=== PATIENT | female | born 1975 | race African-American/Black ===

== ENCOUNTER 2017-10-26 14:15 | Emergency (ER) | payer OTHER ==
[~2017-10-26] VITALS: Ht 180.3 cm; Wt 127.0 kg
[2017-10-26 14:21] VITALS: BP 130/91; PULSE 95; RESP 18; TEMP 98.1; O2SAT 98
[2017-10-26] MEDS ORDERED: SODIUM CHLOR 0.9% 1000 ML INJ 1,000 ML IV ONE (17:13)
[2017-10-26] MEDS ORDERED: diphenhydrAMINE HCL 50 MG/ML VIAL IVP ONE (17:15)
[2017-10-26] MEDS ORDERED: METOCLOPRAMIDE HCL 10 MG/2 ML VIAL IVP ONE (17:15)
[2017-10-26] MEDS ORDERED: ACETAMINOPHEN 325 MG TAB PO ONE (17:15)
[2017-10-26] MEDS ORDERED: SODIUM CHLORIDE 0.9% FLUSH 10 ML FLUSH IVF PRN (17:15)
--- NOTE | 2017-10-26 17:20 | PD ---
HPI Chief Complaint: Headache Time Seen by Provider: 16:57 Travel History International Travel<30 days: No Contact w/Intl Traveler<30days: No Traveled to known affect area: No History of Present Illness HPI The patient is a 42-year-old female who presents to the emergency department for headache. The patient states she developed a headache on Wednesday. The headache is bilateral, throbbing, and intermittent. The patient took a friend's ibuprofen 800 mg 2 days ago and the headache resolved, however, it returned. There is no neck pain associated with the headache. She does complain of mild dizziness, lightheadedness, and occasional blurry vision with the headache. She denies any associated nausea or vomiting. The patient does have a history of loss of smell and taste after she had the influenza virus in 2014. The patient states she had an MRI and a CT the brain at that time which was negative. She denies any focal deficits. Symptoms are moderate. She denies any associated fever. She does incidentally note she has had a loss/thinning of hair over the last several weeks. FOR[facility]LY [facility], LATER [facility] Past Medical History Narrative Medical Loss of smell and taste after the flu ?: Unknown LMP: October 26, 2017 Past Surgical History Narrative Surgical section, tubal ligation Social History Alcohol Use: No Tobacco Use: No Substance Use: No Allergies-Medications (Allergen,Severity, Reaction): Coded Allergies: No Known Allergies (Unverified , 10/26/17) Review of Systems Except as stated in HPI: all other systems reviewed are Neg General / Constitutional: No: Fever Eyes: Positive: Blurred Vision, No: Photophobia HENT: Positive: Headaches, No: Neck Pain Cardiovascular: No: Chest Pain or Discomfort Respiratory: No: Shortness of Breath Gastrointestinal: No: Nausea, Vomiting, Abdominal Pain Skin: Positive Other (Recent hair loss) Neurologic: Positive: Dizziness Physical Exam Narrative GENERAL: Awake, alert, pleasant 42-year-old female who appears her stated age and is in no acute respiratory distress. SKIN: Focused skin assessment warm/dry. HEAD: Atraumatic. Normocephalic. EYES: Pupils equal and round. Pupils are 4 mm bilateral and reactive. EOMs are intact. No visible injection. Patient is able to see fingers at a distance of 2 feet without difficulty. ENT: No nasal bleeding or discharge. Mucous membranes pink and moist. NECK: Trachea midline. No JVD. No meningeal signs. CARDIOVASCULAR: Regular rate and rhythm. No murmur appreciated. RESPIRATORY: No accessory muscle use. Clear to auscultation. Breath sounds equal bilaterally. GASTROINTESTINAL: Abdomen soft, non-tender, nondistended. MUSCULOSKELETAL: No obvious deformities. No clubbing. No cyanosis. No edema. NEUROLOGICAL: Awake and alert. No obvious cranial nerve deficits. Motor grossly within normal limits. Normal speech. Nonfocal. Oriented 4. No drift of the arms or legs. Sensation is symmetric on the face, legs, and arms bilaterally. PSYCHIATRIC: Appropriate mood and affect; insight and judgment normal. Data Data Last Documented VS Vital Signs Date Time Temp Pulse Resp B/P (MAP) Pulse Ox O2 Delivery O2 Flow Rate FiO2 10/26/17 18:34 75 18 143/68 (93) 100 Room Air 10/26/17 14:21 98.1 Orders Orders Complete Blood Count With Diff (10/26/17 17:13) Comprehensive Metabolic Panel (10/26/17 17:13) Ct Brain W/O Iv Contrast(Rout) (10/26/17 17:13) Ecg Monitoring (10/26/17 17:13) Iv Access Insert/Monitor (10/26/17 17:13) Oximetry (10/26/17 17:13) Sodium Chloride 0.9% Flush (Ns Flush) (10/26/17 17:15) Acetaminophen (Tylenol) (10/26/17 17:15) Diphenhydramine Inj (Benadryl Inj) (10/26/17 17:15) Metoclopramide Inj (Reglan Inj) (10/26/17 17:15) Sodium Chlor 0.9% 1000 Ml Inj (Ns 1000 M (10/26/17 17:13) Thyroid Stimulating Hormone (10/26/17 17:13) Free Thyroxine (T4) (10/26/17 18:54) Free T3 (10/26/17 18:54) Labs Laboratory Tests Test 10/26/17 17:43 White Blood Count 8.7 TH/MM3 Red Blood Count 3.76 MIL/MM3 Hemoglobin 8.6 GM/DL Hematocrit 27.6 % Mean Corpuscular Volume 73.4 FL Mean Corpuscular Hemoglobin 22.9 PG Mean Corpuscular Hemoglobin Concent 31.2 % Red Cell Distribution Width 17.4 % Platelet Count 255 TH/MM3 Mean Platelet Volume 8.7 FL Neutrophils (%) (Auto) 76.8 % Lymphocytes (%) (Auto) 12.8 % Monocytes (%) (Auto) 7.3 % Eosinophils (%) (Auto) 2.8 % Basophils (%) (Auto) 0.3 % Neutrophils # (Auto) 6.7 TH/MM3 Lymphocytes # (Auto) 1.1 TH/MM3 Monocytes # (Auto) 0.6 TH/MM3 Eosinophils # (Auto) 0.2 TH/MM3 Basophils # (Auto) 0.0 TH/MM3 CBC Comment DIFF FINAL Differential Comment Blood Urea Nitrogen 10 MG/DL Creatinine 0.47 MG/DL Random Glucose 84 MG/DL Total Protein 7.0 GM/DL Albumin 2.9 GM/DL Calcium Level 8.2 MG/DL Alkaline Phosphatase 94 U/L Aspartate Amino Transf (AST/SGOT) 11 U/L Alanine Aminotransferase (ALT/SGPT) 16 U/L Total Bilirubin 0.2 MG/DL Sodium Level 141 MEQ/L Potassium Level 3.4 MEQ/L Chloride Level 106 MEQ/L Carbon Dioxide Level 29.9 MEQ/L Anion Gap 5 MEQ/L Estimat Glomerular Filtration Rate 176 ML/MIN Free Thyroxine 2.04 NG/DL Free Triiodothyronine (T3) pg/dL 5.45 PG/ML Thyroid Stimulating Hormone 3rd Gen LESS THAN 0.005 uIU/ML MDM Medical Decision Making Medical Screen Exam Complete: Yes Emergency Medical Condition: Yes Medical Record Reviewed: Yes Interpretation(s) Last Impressions Head CT 10/26/17 6013 Signed Impressions: CONCLUSION: 1. Negative CT Head non contrast. Laboratory Tests Test 10/26/17 17:43 White Blood Count 8.7 TH/MM3 Red Blood Count 3.76 MIL/MM3 Hemoglobin 8.6 GM/DL Hematocrit 27.6 % Mean Corpuscular Volume 73.4 FL Mean Corpuscular Hemoglobin 22.9 PG Mean Corpuscular Hemoglobin Concent 31.2 % Red Cell Distribution Width 17.4 % Platelet Count 255 TH/MM3 Mean Platelet Volume 8.7 FL Neutrophils (%) (Auto) 76.8 % Lymphocytes (%) (Auto) 12.8 % Monocytes (%) (Auto) 7.3 % Eosinophils (%) (Auto) 2.8 % Basophils (%) (Auto) 0.3 % Neutrophils # (Auto) 6.7 TH/MM3 Lymphocytes # (Auto) 1.1 TH/MM3 Monocytes # (Auto) 0.6 TH/MM3 Eosinophils # (Auto) 0.2 TH/MM3 Basophils # (Auto) 0.0 TH/MM3 CBC Comment DIFF FINAL Differential Comment Blood Urea Nitrogen 10 MG/DL Creatinine 0.47 MG/DL Random Glucose 84 MG/DL Total Protein 7.0 GM/DL Albumin 2.9 GM/DL Calcium Level 8.2 MG/DL Alkaline Phosphatase 94 U/L Aspartate Amino Transf (AST/SGOT) 11 U/L Alanine Aminotransferase (ALT/SGPT) 16 U/L Total Bilirubin 0.2 MG/DL Sodium Level 141 MEQ/L Potassium Level 3.4 MEQ/L Chloride Level 106 MEQ/L Carbon Dioxide Level 29.9 MEQ/L Anion Gap 5 MEQ/L Estimat Glomerular Filtration Rate 176 ML/MIN Thyroid Stimulating Hormone 3rd Gen LESS THAN 0.005 uIU/ML Differential Diagnosis Differential diagnosis includes tension headache, migraine, subarachnoid hemorrhage, intracranial hemorrhage, intracranial tumor, glaucoma, meningitis, encephalitis. Narrative Course IV was established, labs are drawn and sent, the patient was placed on cardiac telemetry monitoring and continuous pulse oximetry monitoring. The patient was administered Benadryl, Reglan, and IV fluids for her headache. Laboratory evaluation including TSH was sent to lab. Noncontrast CT the brain was obtained. The patient denies , states she had a tubal ligation and is currently on her menstrual cycle. The patient's hemoglobin is 8.6 with MCV of 73.4 consistent with microcytosis anemia, most likely iron deficiency anemia. The patient's TSH was less than 0.005. Therefore, free T4 and free T3 were sent to lab. The patient's TSH is low, less than 0.005, free T4 and free T3 are both elevated, consistent with hyperthyroidism. The patient will need further evaluation outpatient with a primary physician and/or maritime officer for possible ultrasound of the thyroid and further studies. I will place the patient on a low dose of methimazole until she can be evaluated on outpatient basis. The patient was reevaluated, headache has significantly improved. Diagnosis Primary Impression: Cephalgia Qualified Codes: R51 - Headache Additional Impressions: Hyperthyroidism Microcytic anemia Patient Instructions: General Instructions Additional Instructions: Medications as directed. Follow-up with a primary physician and her maritime officer on an outpatient basis, he may benefit from ultrasound of the thyroid and further evaluation of your thyroid studies. [id number] iron supplementation for iron deficiency anemia. Please provide the patient a copy of her CT results and lab results at discharge. Med/Other Pt SpecificInfo: Prescription(s) given Scripts Methimazole (Methimazole) 5 Mg Tab 5 MG PO DAILY for Thyroid, #30 TAB 0 Refills Prov: Ezio Le MD 10/26/17 Disposition: DISCHARGE HOME Condition: Stable Ezio Le MD Oct 26, 2017 17:20
[2017-10-26 17:59] VITALS: O2SAT 100
[2017-10-26 18:16] LABS: AUTOMATED NEUTROPHIL # 6.7 TH/MM3 (1.8-7.7); BASOPHIL % 0.3 % (0.0-2.0); EOSINOPHIL # 0.2 TH/MM3 (0-0.4); EOSINOPHIL % 2.8 % (0.0-4.0); HEMATOCRIT 27.6 % (35.0-46.0); HEMOGLOBIN 8.6 GM/DL (11.6-15.3); LYMPH % 12.8 % (9.0-44.0); LYMPHOCYTE # 1.1 TH/MM3 (1.0-4.8); MEAN CELL VOLUME 73.4 FL (80.0-100.0); MEAN CORPUSCULAR HEMOGLOBIN 22.9 PG (27.0-34.0); MEAN CORPUSCULAR HGB CONC 31.2 % (32.0-36.0); MEAN PLATELET VOLUME 8.7 FL (7.0-11.0); MONO % 7.3 % (0.0-8.0); MONOCYTE # 0.6 TH/MM3 (0-0.9); NEUT % 76.8 % (16.0-70.0); PLATELET COUNT 255 TH/MM3 (150-450); RED BLOOD COUNT 3.76 MIL/MM3 (4.00-5.30); RED CELL DISTRIBUTION WIDTH 17.4 % (11.6-17.2); WHITE BLOOD COUNT 8.7 TH/MM3 (4.0-11.0)
[2017-10-26 18:32] LABS: ALBUMIN 2.9 GM/DL (3.4-5.0); AST (GOT) 11 U/L (15-37); BICARBONATE 29.9 MEQ/L (21.0-32.0); BLOOD UREA NITROGEN 10 MG/DL (7-18); CALCIUM 8.2 MG/DL (8.5-10.1); CHLORIDE 106 MEQ/L (98-107); CREATININE 0.47 MG/DL (0.50-1.00); GLOMERULAR FILTRATION RATE 176 ML/MIN (>89); GLUCOSE,RANDOM 84 MG/DL (74-106); SODIUM (NA) 141 MEQ/L (136-145)
[2017-10-26 18:34] VITALS: BP 143/68; PULSE 75; RESP 18; O2SAT 100
[2017-10-26 18:43] LABS: ALKALINE PHOSPHATASE 94 U/L (45-117); ALT (GPT) 16 U/L (10-53); TOTAL BILIRUBIN ADULT 0.2 MG/DL (0.2-1.0)
--- NOTE | 2017-10-26 18:44 | RADRPT ---
EXAM DATE: 10/26/2017 6:40 PM EDT AGE/SEX: 42 years / Female INDICATIONS: Cephalgia, blurred vision, dizziness. CLINICAL DATA: This is the patient's initial encounter. Patient reports that signs and symptoms have been present for 1 day and indicates a pain score of 10/10. MEDICAL/SURGICAL HISTORY: None. None. RADIATION DOSE: 39.97 CTDI (mGy) COMPARISON: No prior exams available for comparison. TECHNIQUE: CT of the head without contrast. Using automated exposure control and adjustment of the mA and/or kV according to patient size, radiation dose was kept as low as reasonably achievable to ob tain optimal diagnostic quality images. DICOM format image data is available electronically for revi ew and comparison. FINDINGS: Cerebrum: The ventricles are normal for age. No evidence of midline shift, mass lesion, hemorrhage or acute infarction. No extraaxial fluid collections are seen. Posterior Fossa: The cerebellum and brainstem are intact. The 4th ventricle is midline. The cerebe llopontine angle is unremarkable. Extracranial: The visualized portion of the orbits is intact. Skull: The calvaria is intact. No evidence of skull fracture. CONCLUSION: 1. Negative CT Head non contrast. Electronically signed by: Denilson Trevino MD 10/26/2017 6:43 PM EDT
[2017-10-26 19:28] LABS: FREE T3 5.45 PG/ML (2.18-3.98); FREE T4 2.04 NG/DL (0.76-1.46)
[2017-10-26] MEDS ORDERED: METH5TAB4 PO (19:38)
== END 2017-10-26 20:30 | disposition home or self-care (01) ==
LOC: NEPD 14:15
DX: R51 Headache (principal); E05.90 Thyrotoxicosis, unspecified without thyrotoxic crisis or storm; D50.9 Iron deficiency anemia, unspecified; R42 Dizziness and giddiness; H53.8 Other visual disturbances
CPT/HCPCS: 70450; 80053; 84439; 84443; 84481; 85025; 96374; 96375; 99284; J1200; J2765; J7030